=== PATIENT | female | born 1975 | race Caucasian/White ===

== ENCOUNTER 2016-11-13 13:30 | Emergency (ER) | payer MEDICAID ==
--- NOTE | 2016-11-13 14:34 | ER Document Report ---
ED Medical Screen (RME) - General Stated Complaint: KNEE INJURY Notes: injured her knee sunday, tripped and landed on her right knee. difficulty ambulating, able to bear weight. difficulty flexing to 90 degrees but able to, very painful patient has been icing it but no other medications DP's intact, ROM intact below knee, sensation intact I have greeted and performed a rapid initial assessment of this patient. A comprehensive ED assessment and evaluation of the patient, analysis of test results and completion of the medical decision making process will be conducted by additional ED providers. TRAVEL OUTSIDE OF THE [place] IN LAST 30 DAYS: No - Related Data Allergies/Adverse Reactions: codeine Allergy (Intermediate, Verified 11/13/16 14:34) Past Medical History Pulmonary Medical History: Reports: Hx Asthma Musculoskeltal Medical History: Reports Hx Musculoskeletal Trauma Psychiatric Medical History: Reports: Hx Anxiety Traumatic Medical History: Reports: Hx Fractures Past Surgical History: Reports: Hx Hysterectomy, Hx Tubal Ligation - Immunizations Immunizations up to date: Yes Hx Diphtheria, Pertussis, Tetanus Vaccination: Yes Physical Exam - Vital signs Vitals: Temp Pulse Resp BP Pulse Ox 98.0 F 92 14 117/87 H 98 11/13/16 13:55 11/13/16 13:55 11/13/16 13:55 11/13/16 13:55 11/13/16 13:55 Course - Vital Signs Vital signs: Temp Pulse Resp BP Pulse Ox 98.0 F 92 14 117/87 H 98 11/13/16 13:55 11/13/16 13:55 11/13/16 13:55 11/13/16 13:55 11/13/16 13:55
[2016-11-13] MEDS ORDERED: IBUPROFEN 800 MG TABLET PO ONE (14:37)
[2016-11-13] MEDS ORDERED: HYDROCODONE/ACETAMINOPHEN 5-325 MG TABLET PO ONE (16:40)
[2016-11-13] MEDS ORDERED: DIPH/PERTUSS(ACELL)/TETANUS VAC/PF 0.5 ML SYR (>=10YO) IM ONE (16:40)
--- NOTE | 2016-11-13 16:42 | ER Document Report ---
ED Extremity Problem, Lower - General Chief Complaint: Knee Injury Stated Complaint: KNEE INJURY Time seen by provider: 16:36 Mode of Arrival: Ambulatory Information source: Patient Notes: 41-year-old female presents to ED for a pain in her right knee. States she tripped and fell on Sunday had a laceration to her knee that she did did not receive treatment for. States she's been using ice to her knee. TRAVEL OUTSIDE OF THE [place] IN LAST 30 DAYS: No - HPI Patient complains to provider of: Injury, Pain, Swelling Location: Knee - Right Occurred: Other - Sunday Where: Home, Outdoors Onset/Duration: Persistent Quality of pain: Sharp Severity: Moderate Pain Level: 3 Context: Fell Recent injury: Yes Associated symptoms: Other - Painful right knee Exacerbated by: Movement, Walking Relieved by: Nothing, Rest - Related Data Allergies/Adverse Reactions: codeine Allergy (Intermediate, Verified 11/13/16 14:34) Past Medical History - General Information source: Patient - Social History Smoking Status: Current Every Day Smoker Cigarette use (# per day): Yes - have a pack-a-day Chew tobacco use (# tins/day): No Smoking Education Provided: Yes - less than a minute Frequency of alcohol use: Occasional Drug Abuse: None Lives with: Family Family History: Arthritis, Hyperlipidemia, Hypertension, Malignancy, Other - asthma Patient has suicidal ideation: No Patient has homicidal ideation: No - Past Medical History Cardiac Medical History: Reports: None Pulmonary Medical History: Reports: Hx Asthma EENT Medical History: Reports: None Neurological Medical History: Reports: None Endocrine Medical History: Reports: None Renal/ Medical History: Reports: None Malignancy Medical History: Reports: None GI Medical History: Reports: None Musculoskeltal Medical History: Reports Hx Musculoskeletal Trauma - Fractured ankle Skin Medical History: Reports None Psychiatric Medical History: Reports: Hx Anxiety Traumatic Medical History: Reports: Hx Fractures - Ankle Infectious Medical History: Reports: None Past Surgical History: Reports: Hx Hysterectomy, Hx Tubal Ligation - Immunizations Immunizations up to date: Yes Hx Diphtheria, Pertussis, Tetanus Vaccination: Yes Hx Pneumococcal Vaccination: 10/01/00 Review of Systems - Review of Systems Constitutional: No symptoms reported EENT: No symptoms reported Cardiovascular: No symptoms reported Respiratory: No symptoms reported Gastrointestinal: No symptoms reported Genitourinary: No symptoms reported Female Genitourinary: No symptoms reported Musculoskeletal: Other - Right knee pain, pain with range of motion Skin: Other - Laceration from Sunday since Sunday to close it it is starting to heal over with a scab no redness or signs of infection Hematologic/Lymphatic: No symptoms reported Neurological/Psychological: No symptoms reported Physical Exam - Vital signs Vitals: Temp Pulse Resp BP Pulse Ox 98.0 F 92 14 117/87 H 98 11/13/16 13:55 11/13/16 13:55 11/13/16 13:55 11/13/16 13:55 11/13/16 13:55 Interpretation: Normal - General General appearance: Appears well, Alert - HEENT Head: Normocephalic, Atraumatic Eyes: Normal Pupils: PERRL - Respiratory Respiratory status: No respiratory distress Chest status: Nontender Breath sounds: Normal Chest palpation: Normal - Cardiovascular Rhythm: Regular Heart sounds: Normal auscultation Murmur: No - Abdominal Inspection: Normal Distension: No distension Bowel sounds: Normal Tenderness: Nontender Organomegaly: No organomegaly - Back Back: Normal, Nontender - Extremities General upper extremity: Normal inspection, Nontender, Normal color, Normal ROM , Normal temperature General lower extremity: Normal color, Normal ROM, Normal temperature. No: Alex's sign Knee: Tender, Ecchymosis, Laceration - Partially healed scabbed over, Pain with ROM, Patellar tendon intact. No: Abrasion, Deformity, Dislocation, Drawer's test instability, Instability, Joint effusion, Laxity with valgus stress, Laxity with varus stress, Popliteal fossa tender, Tender joint line, Unable to bear weight - Painful ambulation - Neurological Neuro grossly intact: Yes Cognition: Normal Orientation: AAOx4 [place] Coma Scale Eye Opening: Spontaneous [place] Coma Scale Verbal: Oriented [place] Coma Scale Motor: Obeys Commands [place] Coma Scale Total: 15 Speech: Normal Motor strength normal: LUE, RUE, LLE, RLE Sensory: Normal - Psychological Associated symptoms: Normal affect, Normal mood - Skin Skin Temperature: Warm Skin Moisture: Dry Skin Color: Normal Course - Re-evaluation Re-evalutation: 11/13/16 16:51 Discussed x-ray with patient patient treated with ibuprofen [place] and tetanus immunization. - Vital Signs Vital signs: Temp Pulse Resp BP Pulse Ox 98.0 F 92 14 117/87 H 98 11/13/16 13:55 11/13/16 13:55 11/13/16 13:55 11/13/16 13:55 11/13/16 13:55 - Diagnostic Test Radiology reviewed: Image reviewed, Reports reviewed Discharge - Discharge Clinical Impression: Contusion of right knee Qualifiers: Encounter type: initial encounter Qualified Code(s): S80.01XA - Contusion of right knee, initial encounter Laceration of right knee Qualifiers: Encounter type: initial encounter Qualified Code(s): S81.011A - Laceration without foreign body, right knee, initial encounter Condition: Stable Disposition: HOME, SELF-CARE Additional Instructions: NON-SUTURED LACERATION: Your laceration did not require suturing. Some lacerations cannot be sutured because of increased infection risk, while others simply don't need stitches because they are shallow or very short. Your injury should be protected while it heals. Usually complete healing takes 10 to 14 days. Keep the dressing clean and dry, and change it every day. If you notice increasing pain, redness, swelling, drainage, or tender lumps in the armpit or groin above the injury, infection may be present. You should call the doctor at once. CONTUSION: Your injury has resulted in a contusion -- a crushing of the deep tissues. No injury to important structures was detected during the physician's exam. Contusions vary in the amount of pain they cause, and in the length of time required for healing. Typically, the area will become bruised, and will remain painful to touch for two or three weeks. However, most patients are back to working and playing within a few days. After the initial period of rest and cold-packs, your symptoms (together with the doctor's recommendations) will determine how rapidly you can get back to full activity. Usually this means "do what feels okay, but don't do things that hurt." If re-examination was recommended, it's important to follow up as instructed. Call the doctor or return any time if pain increases, if swelling becomes severe, if you develop numbness or weakness in an injured extremity, or if any other alarming symptoms occur. NON-SUTURED LACERATION: Your laceration did not require suturing. Some lacerations cannot be sutured because of increased infection risk, while others simply don't need stitches because they are shallow or very short. Your injury should be protected while it heals. Usually complete healing takes 10 to 14 days. Keep the dressing clean and dry, and change it every day. If you notice increasing pain, redness, swelling, drainage, or tender lumps in the armpit or groin above the injury, infection may be present. You should call the doctor at once. TETANUS IMMUNIZATION GIVEN: You have been given an immunization against tetanus. Please record this in your records. In general, a booster is needed only once every 10 years. The tetanus shot protects against tetanus or "lockjaw," which is a complication of certain wound infections (the tetanus shot cannot protect against the actual infection). The immunization site may become warm and red due to local reaction. If this occurs, apply warm compresses and take aspirin or ibuprofen to reduce inflammation and discomfort. Return for evaluation if the reaction becomes severe. ICE PACKS: Apply ice packs frequently against the painful area. Many different schedules are recommended, such as "20 minutes on, 20 minutes off" or "one hour ice, two hours rest." If you need to work, you may need to go longer between ice treatments. You should plan to have the area ice packed AT LEAST one fourth of the time. The ice should be applied over the wrap, tape, or splint, or over a layer of cloth -- not directly against the skin. Some ice bags have a built-in cloth and can be put directly on the skin. SOAP CLEANSING: Gently wash the wound daily using a mild soap (like Ivory, Phisoderm, Neutrogena). Use warm water, rubbing gently until all debris, ooze, and crusting have been washed from the wound. Allow to dry briefly (about 10 minutes) after cleaning. Repeat this cleansing at least three times a day for the first two days and then once or twice a day. ANTIBIOTIC OINTMENT PROTECTION: Your wounds are such that dressing them is not practical or optional. After cleansing, you should apply a thin coating of antibiotic ointment ( Bacitracin, not Neosporin) to the wounds at least three times daily. This lessens infection risk, and may decrease the amount of scarring. Use a q-tip or dull butter knife, not your finger, to apply this ointment. Any debris or ooze which builds up in the ointment should be gently rubbed off with a sterile gauze pad. Harder crusting may need to be gently scrubbed off with a clean wash cloth with soap and warm water, perhaps applying a warm, wet wash cloth to the wound for ten minutes first. Development of redness, severe itching, or blistering may mean allergy to the ointment. See the doctor. TETANUS IMMUNIZATION GIVEN: You have been given an immunization against tetanus. Please record this in your records. In general, a booster is needed only once every 10 years. The tetanus shot protects against tetanus or "lockjaw," which is a complication of certain wound infections (the tetanus shot cannot protect against the actual infection). The immunization site may become warm and red due to local reaction. If this occurs, apply warm compresses and take aspirin or ibuprofen to reduce inflammation and discomfort. Return for evaluation if the reaction becomes severe. ORAL NARCOTIC MEDICATION: You have been given a prescription for pain control. This medication is a narcotic. It's best taken with food, as nausea can result if taken on an empty stomach. Don't operate machinery or drive within six hours of taking this medication. Do not combine this medicine with alcohol, or with any medication which can cause sedation (such as cold tablets or sleeping pills) unless you get permission from the physician. Narcotics tend to cause constipation. If possible, drink plenty of fluids and eat a diet high in fiber and fruits. FOLLOW-UP CARE: If you have been referred to a physician for follow-up care, call the physician s office for an appointment as you were instructed or within the next two days. If you experience worsening or a significant change in your symptoms, notify the physician immediately or return to the Emergency Department at any time for re-evaluation. Prescriptions: Hydrocodone/Acetaminophen [[place] 5-325 mg Tablet] 1 tab PO Q6HP PRN #14 tablet PRN Reason: Forms: Elevated Blood Pressure, Smoking Cessation Education
[2016-11-13 16:49] VITALS: BP 124/76
== END 2016-11-13 16:58 | disposition home or self-care (01) ==
LOC: ER 13:30
DX: S80.01XA Contusion of right knee, initial encounter (principal); S81.011A Laceration without foreign body, right knee, initial encounter; W19.XXXA Unspecified fall, initial encounter; F17.210 Nicotine dependence, cigarettes, uncomplicated
CPT/HCPCS: 99283; 90471; 73562; 90715; J3490

== ENCOUNTER → 2016-12-06 | Outpatient (CLI) | payer MEDICAID | LOC: WI 12:58 | PROVIDERS: ATTEND Family Medicine | DX: Z12.31 Encounter for screening mammogram for malignant neoplasm of breast (principal) | CPT/HCPCS: 77067; G0202 ==

== ENCOUNTER → 2017-01-22 | Outpatient (CLI) | payer MEDICAID | LOC: OD 11:22 | PROVIDERS: ATTEND Family Medicine | DX: S39.92XA Unspecified injury of lower back, initial encounter (principal) | CPT/HCPCS: 72110 ==

== ENCOUNTER 2018-03-16 10:39 | Emergency (ER) | payer MEDICAID, OTHER ==
[2018-03-16] MEDS ORDERED: ACETAMINOPHEN 325 MG TABLET PO ONE (11:26)
--- NOTE | 2018-03-16 11:28 | ER Document Report ---
ED Fall - General Chief Complaint: Fall Stated Complaint: FALL/HIP AND BACK PAIN Time Seen by Provider: 03/16/18 11:04 Mode of Arrival: Wheelchair Information source: Patient Notes: 42-year-old female presents to ED for complaint of pain to the right hip low back and right elbow after she fell at work yesterday. She is in a wheelchair at this time. She is alert and oriented, pupils equal and react to light, speaking in full sentences, respirations regular and unlabored, patient is able to ambulate with pain. Patient has peripheral pulses present cap refills less than 3. There is bruising to the hip and the elbow. TRAVEL OUTSIDE OF THE [place] IN LAST 30 DAYS: No - HPI Occurred: Yesterday Where: Work Context: Slipped Associated symptoms: None Location of injury/pain: Back, Hip, Other - Elbow Quality of pain: Sharp Severity: Moderate Pain Level: 4 - Related data Allergies/Adverse Reactions: codeine Allergy (Intermediate, Verified 11/13/16 14:34) Past Medical History - General Information source: Patient - Social History Smoking Status: Current Every Day Smoker Cigarette use (# per day): Yes - One half pack per day Chew tobacco use (# tins/day): No Smoking Education Provided: Yes - 4 minutes Frequency of alcohol use: Occasional Drug Abuse: None Family History: Arthritis, Hyperlipidemia, Hypertension, Malignancy, Other - asthma Patient has suicidal ideation: No Patient has homicidal ideation: No Pulmonary Medical History: Reports: Hx Asthma Renal/ Medical History: Denies: Hx Peritoneal Dialysis Musculoskeltal Medical History: Reports Hx Musculoskeletal Trauma - Fractured ankle Psychiatric Medical History: Reports: Hx Anxiety Traumatic Medical History: Reports: Hx Fractures - Ankle Past Surgical History: Reports: Hx Hysterectomy, Hx Tubal Ligation - Immunizations Immunizations up to date: Yes Hx Diphtheria, Pertussis, Tetanus Vaccination: Yes Hx Pneumococcal Vaccination: 10/01/00 Review of Systems - Review of Systems Constitutional: No symptoms reported EENT: No symptoms reported Cardiovascular: No symptoms reported Respiratory: No symptoms reported Gastrointestinal: No symptoms reported Genitourinary: No symptoms reported Female Genitourinary: No symptoms reported Musculoskeletal: Joint pain, Joint swelling, Muscle pain, Muscle stiffness, Other - Right hip right elbow and lower back pain. Skin: No symptoms reported Hematologic/Lymphatic: No symptoms reported Neurological/Psychological: No symptoms reported -: Yes All other systems reviewed and negative Physical Exam - Vital signs Vitals: Temp Pulse Resp BP Pulse Ox 99.0 F 98 20 132/92 H 98 03/16/18 10:46 03/16/18 10:46 03/16/18 10:46 03/16/18 10:46 03/16/18 10:46 Interpretation: Normal - General General appearance: Appears well, Alert - HEENT Head: Normocephalic, Atraumatic Eyes: Normal Pupils: PERRL - Respiratory Respiratory status: No respiratory distress Chest status: Nontender Breath sounds: Normal Chest palpation: Normal - Cardiovascular Rhythm: Regular Heart sounds: Normal auscultation Murmur: No - Abdominal Inspection: Normal Distension: No distension Bowel sounds: Normal Tenderness: Nontender Organomegaly: No organomegaly - Back Back: Normal, Tender. No: Deformity/step-off, CVA tenderness, Vertebra tenderness, Scars, Scoliosis, Wounds - Extremities General upper extremity: Normal inspection, Normal color, Normal temperature. No: Normal ROM General lower extremity: Normal inspection, Normal color, Normal temperature, Normal weight bearing. No: Normal ROM, Alex's sign Elbow: Tender, Limited ROM - Due to pain. No: Abrasion, Deformity, Dislocation , Ecchymosis, Instability, Joint effusion, Laceration, Swollen bursa Forearm: Tender. No: Abrasion, Deformity, Ecchymosis, Instability, Laceration Hip: Tender, Pain with ROM. No: Abrasion, Deformity, Dislocation, Ecchymosis, Instability, Laceration, Unable to bear weight - Pain with ambulation Thigh: Normal, Nontender Knee: Normal, Nontender Calf: Normal, Nontender Ankle: Normal, Nontender Foot: Normal, Nontender - Neurological Neuro grossly intact: Yes Cognition: Normal Orientation: AAOx4 Juan Carlos Coma Scale Eye Opening: Spontaneous Juan Carlos Coma Scale Verbal: Oriented Juan Carlos Coma Scale Motor: Obeys Commands Margie Coma Scale Total: 15 Speech: Normal Motor strength normal: LUE, RUE, LLE, RLE Sensory: Normal - Psychological Associated symptoms: Normal affect, Normal mood - Skin Skin Temperature: Warm Skin Moisture: Dry Skin Color: Normal Course - Re-evaluation Re-evalutation: 03/16/18 21:11 X-rays were discussed with patient before she was discharged. Written reports of x-rays given to patient to follow-up with her primary doctor and orthopedics. Patient stated that her elbow did not hurt as much is her hip and would prefer crutches and states she would be able to walk with crutches rather than a sling for her elbow. There is no acute injuries to the elbow hip or back. Patient was given instructions on Tylenol Motrin ice packs warm packs elevation ice for her injuries. After performing a Medical Screening Examination, I estimate there is LOW risk for EXPANDING OR RUPTURED ABDOMINAL AORTIC ANEURYSM, CAUDA EQUINA SYNDROME, EPIDURAL MASS LESION, or HERNIATED DISK CAUSING SEVERE SPINAL STENOSIS, thus I consider the discharge disposition reasonable. I have reevaluated this patient multiple times and no significant life threatening changes are noted. The patient and I have discussed the diagnosis and risks, and we agree with discharging home and close follow-up. We also discussed returning to the Emergency Department immediately if new or worsening symptoms occur with the understanding that symptoms and presentations can change. We have discussed the symptoms which are most concerning (e.g., saddle anesthesia, urinary or bowel incontinence or retention, changing or worsening pain) that necessitate immediate return. - Vital Signs Vital signs: Temp Pulse Resp BP Pulse Ox 98.2 F 80 16 124/88 H 100 03/16/18 13:15 03/16/18 13:15 03/16/18 13:15 03/16/18 13:15 03/16/18 13:15 - Diagnostic Test Radiology reviewed: Image reviewed, Reports reviewed Procedures - Immobilization Right Hip Time completed: 13:09 Immobilizer type: Crutches Performed by: PCT Post-Proc Neuro Vasc Exam: Normal Alignment checked and good: Yes Discharge - Discharge Clinical Impression: Fall Qualifiers: Encounter type: initial encounter Qualified Code(s): W19.XXXA - Unspecified fall, initial encounter Contusion of right hip and thigh Qualifiers: Encounter type: initial encounter Qualified Code(s): S70.01XA - Contusion of right hip, initial encounter Contusion of right elbow Qualifiers: Encounter type: initial encounter Qualified Code(s): S50.01XA - Contusion of right elbow, initial encounter Chronic low back pain Qualifiers: Back pain laterality: unspecified Sciatica presence: with sciatica Sciatica laterality: sciatica of right side Qualified Code(s): M54.41 - Lumbago with sciatica, right side Disposition: HOME, SELF-CARE Additional Instructions: CONTUSION: Your injury has resulted in a contusion -- a crushing of the deep tissues. No injury to important structures was detected during the physician's exam. Contusions vary in the amount of pain they cause, and in the length of time required for healing. Typically, the area will become bruised, and will remain painful to touch for two or three weeks. However, most patients are back to working and playing within a few days. After the initial period of rest and cold-packs, your symptoms (together with the doctor's recommendations) will determine how rapidly you can get back to full activity. Usually this means "do what feels okay, but don't do things that hurt." If re-examination was recommended, it's important to follow up as instructed. Call the doctor or return any time if pain increases, if swelling becomes severe, if you develop numbness or weakness in an injured extremity, or if any other alarming symptoms occur. Chronic Back Pain Chronic back pain (pain persisting longer than three months) is a common problem. A medical evaluation can look for herniated disc, arthritis, osteoporosis, tumors, and infections. But at least half the time, there's no obvious treatable cause. Anxiety and depression tend to worsen back pain. Ibuprofen or other anti-inflammatory medicine can help. A heating pad, used for 15-20 minutes at a time, can ease pain. For this type of back pain, narcotic medicines should be avoided. Muscle relaxers are rarely helpful unless you're having spasms. Activity is important. Find an aerobic exercise program that your back can tolerate. Too much rest makes back pain worse. Specific back exercises are usually prescribed to strengthen the back and abdominal muscles. Often, a physical therapist can help. Avoid heavy lifting, working while bent over, or standing with both knees straight. Most back pain patients do better with a firm mattress. If new symptoms of a "herniated disc" (radiation of pain, numbness, or tingling down the back of the leg or weakness in the leg) occur, you should be re-examined. USE OF TYLENOL (ACETAMINOPHEN): Acetaminophen may be taken for pain relief or fever control. It's much safer than aspirin, offering a wider range of "safe" dosages. It is safe during . Some brand names are Tylenol, Panadol, Datril, Anacin 3, Tempra, and Liquiprin. Acetaminophen can be repeated every four hours. The following are maximum recommended dosages: WEIGHT Dose Drops Elixir Chewable( 80mg) (LBS.) drprs=droppers tsp=teaspoon 6 40 mg 0.4 ml (1/2) 6-11 80 mg 0.8 ml (full) tsp 1 tab 12-16 120 mg 1 1/2 drprs 3/4 tsp 1 1/2 tabs 17-23 160 mg 2 drprs 1 tsp 2 tabs 24-30 240 mg 3 drprs 1 1/2 tsp 3 tabs 30-35 320 mg 2 tsp 4 tabs 36-41 360 mg 2 1/4 tsp 4 1/2 tabs 42-47 400 mg 2 1/2 tsp 5 tabs 48-53 480 mg 3 tsp 6 tabs 54-59 520 mg 3 1/4 tsp 6 1/2 tabs 60-64 560 mg 3 1/2 tsp 7 tabs 65-70 600 mg 3 3/4 tsp 7 1/2 tabs 71-76 640 mg 4 tsp 8 tabs 77-82 720 mg 4 1/2 tsp 9 tabs 83-88 800 mg 5 tsp 10 tabs >89 pounds or adults 650 mg to 900 mg Acetaminophen can be repeated every four hours. Maximum dose not to exceed 4000 mg a day. These maximum recommended dosages are slightly higher than the dosages written on the product container, but these dosages are very safe and below the toxic dosage for acetaminophen. ICE PACKS: Apply ice packs frequently against the painful area. Many different schedules are recommended, such as "20 minutes on, 20 minutes off" or "one hour ice, two hours rest." If you need to work, you may need to go longer between ice treatments. You should plan to have the area ice packed AT LEAST one fourth of the time. The ice should be applied over the wrap, tape, or splint, or over a layer of cloth -- not directly against the skin. Some ice bags have a built-in cloth and can be put directly on the skin. WARM PACKS: After approximately two days, apply gentle heat (such as a heating pad or hot water bottle) for about 20 to 30 minutes about every two hours -- at least four times daily. Warmth and elevation will help you make a more rapid recovery , and will ease the pain considerably. Do not use HOT heat, and never apply heat for longer than 30 minutes. The continuous heat can invisibly damage skin and muscles -- even when no burn is seen on the surface. Damaged muscles can make you MORE sore. USE OF CRUTCHES: The doctor has recommended that you not bear weight at this time. You will need to use crutches. Adjust the crutches so the tops come to about two inches under the armpit while you are standing upright. Use your hands -- not your armpits -- to support your weight. To get into a chair, support yourself with one crutch on the injured side. Hold the chair with the other hand, then lower yourself while putting all your weight on the good leg. Going up stairs is `good leg up, step up, then bring up crutches and bad leg.' Down stairs is `bad leg and crutches down, then bring good leg down.' If you develop numbness or swelling in an arm or hand, you are using the crutches incorrectly. Return if you are having any problems with the crutches. ICE & ELEVATION: Apply ice packs frequently against the painful area. Many different schedules are recommended, such as "20 minutes on, 20 minutes off" or "one hour ice, two hours rest." If you need to work, you may need to go longer between ice treatments. You should plan to have the area ice packed AT LEAST one- fourth of the time. The ice should be applied over the wrap, tape, or splint, or over a layer of cloth -- not directly against the skin. Some ice bags have a built-in cloth and can be put directly on the skin. Your injured part should be elevated as much as possible over the next 48 hours. Try to keep the injury above the level of the heart. Avoid use of the injured area. Elevation and rest will decrease the swelling. USE OF [id number] IBUPROFEN: Ibuprofen (Advil, Nuprin, Medipren, Motrin IB) is a medication for fever and pain control. In addition, it has anti- inflammatory effects which may be beneficial, especially in the treatment of injuries. It's best to take ibuprofen with food. Persons with ulcer disease or allergy to aspirin should notify their physician of this before taking ibuprofen. Ibuprofen can be given every four to six hours, for a total of four doses daily. Age Pain or fever dose Antiinflammatory dose 6-8 yr 200 mg (1 tab) 200 mg (1 tab) 9-11 yr 200 mg (1 tab) 200-400 mg (1-2 tab) 11-14 yr 200-400 mg (1-2 tab) 400 mg (2 tab) 15-adult 400 mg (2 tab) 600 mg (3 tab) FOLLOW-UP CARE: If you have been referred to a physician for follow-up care, call the physician s office for an appointment as you were instructed or within the next two days. If you experience worsening or a significant change in your symptoms, notify the physician immediately or return to the Emergency Department at any time for re-evaluation. Forms: Elevated Blood Pressure, Smoking Cessation Education, Return to Work Referrals: BOSSMAN DOAN MD [ACTIVE STAFF] - Follow up as needed LYRIC DAVENPORT MD [ACTIVE STAFF] - Follow up as needed
--- NOTE | 2018-03-16 12:22 | RADIOLOGY REPORT (SQ) ---
EXAM DESCRIPTION: ELBOW RIGHT OVER 2 VIEWS COMPLETED DATE/TIME: 03/16/2018 12:03 pm REASON FOR STUDY: fall pain fall injury pain COMPARISON: None. NUMBER OF VIEWS: Four views. TECHNIQUE: AP, lateral, and both oblique radiographic images acquired of the right elbow. LIMITATIONS: Nonstandard radiographic positioning on lateral view. FINDINGS: MINERALIZATION: Normal. BONES: No acute fracture or dislocation. No worrisome bone lesions. JOINT: No effusion. SOFT TISSUES: No soft tissue swelling. No foreign body. OTHER: No other significant finding. IMPRESSION: NEGATIVE STUDY OF THE RIGHT ELBOW. NO RADIOGRAPHIC EVIDENCE OF ACUTE INJURY. TECHNICAL DOCUMENTATION: JOB ID: [id number] [employer]- All Rights Reserved Reading location - IP/workstation name: [email or web address]
--- NOTE | 2018-03-16 12:23 | RADIOLOGY REPORT (SQ) ---
EXAM DESCRIPTION: HIP RIGHT AP/LATERAL COMPLETED DATE/TIME: 03/16/2018 12:03 pm REASON FOR STUDY: fall pain COMPARISON: None. NUMBER OF VIEWS: Two views. TECHNIQUE: AP pelvis and additional frog-leg view of the right hip. LIMITATIONS: None. FINDINGS: MINERALIZATION: Normal. RIGHT HIP: No fracture or dislocation. No significant joint space narrowing. Mild calcification kaya ng the acetabular labrum. LEFT HIP: No fracture or dislocation. No significant joint space narrowing PUBIS AND ISCHIUM: No fracture. PELVIS: No fracture. SACRUM: No fracture or dislocation. No worrisome bone lesions. LOWER LUMBAR SPINE: Lower lumbar facet arthropathy at L5-S1 SOFT TISSUES: No findings. OTHER: No other significant finding. IMPRESSION: No acute fracture or malalignment. Minimal right hip joint space narrowing. Minimal ca lcifications/ossification along the acetabular labrum TECHNICAL DOCUMENTATION: JOB ID: [id number] [employer]- All Rights Reserved Reading location - IP/workstation name: [email or web address]
--- NOTE | 2018-03-16 12:25 | RADIOLOGY REPORT (SQ) ---
EXAM DESCRIPTION: L SPINE WHOLE COMPLETED DATE/TIME: 03/16/2018 12:03 pm REASON FOR STUDY: fall pain COMPARISON: Lumbar spine five views 03/20/2013 NUMBER OF VIEWS: Five views including obliques. TECHNIQUE: AP, lateral, oblique, and sacral radiographic images acquired of the lumbar spine. LIMITATIONS: None. FINDINGS: MINERALIZATION: Normal. SEGMENTATION: Normal. No transitional anatomy. ALIGNMENT: Normal. VERTEBRAE: Maintained height. No fracture or worrisome bone lesion. DISCS: Preserved height. No significant osteophytes or end plate irregularity. POSTERIOR ELEMENTS: Pedicles and facets are intact. No pars defect or posterior arch defects. Bilat eral facet arthropathy at L4-5 and L5-S1. HARDWARE: None in the spine. PARASPINAL SOFT TISSUES: Normal. IMPRESSION: Lower lumbar facet arthropathy. No acute fracture or malalignment TECHNICAL DOCUMENTATION: JOB ID: [id number]- All Rights Reserved Reading location - IP/workstation name: [email or web address]
[2018-03-16 13:16] VITALS: BP 124/88
== END 2018-03-16 13:15 | disposition home or self-care (01) ==
LOC: ER 10:39
DX: S70.01XA Contusion of right hip, initial encounter (principal); S70.11XA Contusion of right thigh, initial encounter; S50.01XA Contusion of right elbow, initial encounter; M25.551 Pain in right hip; M25.522 Pain in left elbow; W01.0XXA Fall on same level from slipping, tripping and stumbling without subsequent striking against object, initial encounter; Y99.0 Civilian activity done for income or pay; M54.41 Lumbago with sciatica, right side; G89.29 Other chronic pain; F17.210 Nicotine dependence, cigarettes, uncomplicated; Z71.6 Tobacco abuse counseling; J45.909 Unspecified asthma, uncomplicated; Z88.5 Allergy status to narcotic agent
CPT/HCPCS: 72110; 99283; 99406

== ENCOUNTER 2018-09-02 23:49 | Emergency (ER) | payer MEDICAID ==
[2018-09-03 00:30] VITALS: BP 120/96
--- NOTE | 2018-09-03 00:53 | ER Document Report ---
HPI - HPI Patient complains to provider of: left rib injury Time Seen by Provider: 09/03/18 00:28 Pain Level: 5 Context: Patient is a 43-year-old female that comes to the emergency department for chief complaint of left rib pain. She states she was walking down a dark hallway in her house, tripped, and hit her left lower ribs in the front on the side of a dryer. She states since that time she has had pain in the area. This was 4 days ago. She denies passing out, head injury, vomiting, difficulty breathing, or any other injuries. She denies a blood thinner. - RESPIRATORY Respiratory: REPORTS: Trouble Breathing - left lower rib pain - REPRODUCTIVE Reproductive: DENIES: : Past Medical History - General Information source: Patient - Social History Smoking Status: Current Every Day Smoker Chew tobacco use (# tins/day): No Frequency of alcohol use: Occasional Drug Abuse: None Lives with: Family Family History: Arthritis, Hyperlipidemia, Hypertension, Malignancy, Other - asthma Patient has suicidal ideation: No Patient has homicidal ideation: No Pulmonary Medical History: Reports: Hx Asthma Renal/ Medical History: Denies: Hx Peritoneal Dialysis Musculoskeletal Medical History: Reports Hx Musculoskeletal Trauma - Fractured ankle Psychiatric Medical History: Reports: Hx Anxiety Traumatic Medical History: Reports: Hx Fractures - Ankle Past Surgical History: Reports: Hx Hysterectomy, Hx Tubal Ligation - Immunizations Immunizations up to date: Yes Hx Diphtheria, Pertussis, Tetanus Vaccination: Yes Hx Pneumococcal Vaccination: 10/01/00 Vertical Provider Document - CONSTITUTIONAL General Appearance: Mild Distress - Patient appears to have difficulty getting comfortable, intermittently holding her left lower rib area - INFECTION CONTROL TRAVEL OUTSIDE OF THE [place] IN LAST 30 DAYS: No - HEENT HEENT: Atraumatic, Normal ENT Exam, Normocephalic - NECK Neck: Normal Inspection - RESPIRATORY Respiratory: Breath Sounds Normal, No Respiratory Distress. negative: Chest Non -Tender - Tender over the left anterior to lateral lower ribs, no bruising or swelling, no crepitus. Remaining chest unremarkable. - CARDIOVASCULAR Cardiovascular: Regular Rate, Regular Rhythm - GI/ABDOMEN Gastrointestinal: Abdomen Soft, Abdomen Non-Tender - BACK Back: Normal Inspection - MUSCULOSKELETAL/EXTREMETIES Musculoskeletal/Extremeties: MAEW, FROM, Non-Tender - NEURO Level of Consciousness: Awake, Alert, Appropriate Motor/Sensory: No Motor Deficit, No Sensory Deficit - DERM Integumentary: Warm, Dry, No Rash Course - Re-evaluation Re-evalutation: Initial pulse was recorded incorrectly, reevaluated and was accurate the second time. This was confirmed on auscultation. Clear lungs, patient in obvious discomfort but not in severe distress, no hypoxia, no evidence of trauma other than her full 4 days ago and pain over the left lower rib area. Chest x-ray shows left sixth rib fracture, no pneumothorax or other concerning findings. Provided with incentive spirometer, discussed treatment, follow-up, and return precautions in detail. Patient states understanding and agreement. - Vital Signs Vital signs: Temp Pulse Resp BP Pulse Ox 97.9 F 199 H 18 120/96 H 98 09/03/18 00:27 09/03/18 00:27 09/03/18 00:27 09/03/18 00:27 09/03/18 00:27 Discharge - Discharge Clinical Impression: Left rib fracture Qualifiers: Encounter type: initial encounter Rib fracture type: single rib Fracture type: closed Qualified Code(s): S22.32XA - Fracture of one rib, left side, initial encounter for closed fracture Fall Qualifiers: Encounter type: initial encounter Qualified Code(s): W19.XXXA - Unspecified fall, initial encounter Condition: Stable Disposition: HOME, SELF-CARE Instructions: Oral Narcotic Medication ([facility]) Additional Instructions: Your imaging shows a fracture of the left sixth rib. This will slowly heal with time. Use the incentive spirometer several times a day to avoid developing pneumonia. Take the pain medication as needed, I recommend that you take Tylenol or ibuprofen during the day and only take this at night to help you sleep. Follow-up with primary care. Return if you worsen including difficulty breathing, fever of 100.4 or greater, or any other concerning or worsening symptoms. Prescriptions: Morphine Sulfate [Morphine Ir 15 Mg Tablet] 15 mg PO TID PRN #12 tablet PRN Reason: Referrals: MARGARITA JOSEPH DO [Primary Care Provider] - Follow up as needed
--- NOTE | 2018-09-03 01:40 | RADIOLOGY REPORT (SQ) ---
CLINICAL HISTORY: Fell 3 days ago, has L sided rib pain COMPARISON: None. TECHNIQUE: XR RIBS UNILATERAL WITH CHEST 09/03/2018 12:00 AM FACILITIES ASSISTANT FINDINGS: Cardiac silhouette is normal in size. Lungs are clear without consolidation, atelectasis, mass or edema. There is no pleural effusion. There is no pneumothorax. There is a minimally displaced fracture of the lateral aspect of the left sixth rib. IMPRESSION: Left sixth rib fracture.
[2018-09-03] MEDS ORDERED: HYDROCODONE/ACETAMINOPHEN 5-325 MG (6 TAB/ER DISP) PO PRN (01:47)
== END 2018-09-03 02:24 | disposition home or self-care (01) ==
LOC: ER 23:49
DX: S22.32XA Fracture of one rib, left side, initial encounter for closed fracture (principal); R07.81 Pleurodynia; W18.40XA Slipping, tripping and stumbling without falling, unspecified, initial encounter; Y92.008 Other place in unspecified non-institutional (private) residence as the place of occurrence of the external cause; F17.200 Nicotine dependence, unspecified, uncomplicated; J45.909 Unspecified asthma, uncomplicated
CPT/HCPCS: 99283

== ENCOUNTER 2019-01-23 22:20 | Observation (INO) | payer MEDICAID ==
--- NOTE | 2019-01-23 22:50 | ER Document Report ---
ED General - General Chief Complaint: Chest Pain Stated Complaint: CHEST PAIN Time Seen by Provider: 01/23/19 22:46 Primary Care Provider: MARGARITA JOSEPH DO [Primary Care Provider] - Follow up as needed Notes: 3-year-old female presents with left arm and shoulder pain, along with chest pain, followed by immediate weakness and numbness and tingling of the left side of her body, left and arm. She is unsure when this began. She was last seen normal by her daughter at 4:30 PM, and initially we thought this started 1 hour ago but she is having trouble remembering. Her daughter says that when she talked to her mom on the phone at 4:30 PM she was having trouble getting her words out. Patient does not remember this. Is never had this before, she smokes and has high blood pressure but never had a stroke before. History of anxiety but never had symptoms like this during an anxiety attack. That was stopped at discharge she has chronic back pain does not have lower extremely weakness at baseline. She is repeatedly unable to tell me exactly when the symptoms started, other than the occurred after she delivered mParticleo Vasquez to her daughter at 4:30 PM. I am evaluating her at 10:30 PM. TRAVEL OUTSIDE OF THE [place] IN LAST 30 DAYS: No - Related Data Allergies/Adverse Reactions: codeine Allergy (Intermediate, Verified 11/13/16 14:34) Past Medical History - Social History Smoking Status: Current Every Day Smoker Smoking Education Provided: Yes - The patient ED visit today was directly related to their abuse of tobacco. Family History: Arthritis, Hyperlipidemia, Hypertension, Malignancy, Other - asthma Pulmonary Medical History: Reports: Hx Asthma Renal/ Medical History: Denies: Hx Peritoneal Dialysis Musculoskeletal Medical History: Reports Hx Musculoskeletal Trauma - Fractured ankle Psychiatric Medical History: Reports: Hx Anxiety Traumatic Medical History: Reports: Hx Fractures - Ankle Past Surgical History: Reports: Hx Hysterectomy, Hx Tubal Ligation - Immunizations Immunizations up to date: Yes Hx Diphtheria, Pertussis, Tetanus Vaccination: Yes Hx Pneumococcal Vaccination: 10/01/00 Review of Systems - Review of Systems Notes: REVIEW OF SYSTEMS GEN: Denies fever, chills, weight loss ENT: Denies sore throat, nasal discharge, ear pain EYES: Denies blurry vision, eye pain, discharge CV: Denies chest pain, palpitations, edema RESP: Denies cough, shortness of breath, wheezing GI: Denies abdominal pain, nausea, vomiting, diarrhea MSK: Denies joint pain/swelling, edema, SKIN: Denies rash, skin lesions LYMPH: Denies swollen glands/lymph nodes NEURO: Sided weakness and numbness, resolved speech difficulties PSYCH: Denies depression, suicidal or homicidal ideation PHYSICAL EXAMINATION General: No acute distress, well-nourished Head: Atraumatic, normocephalic ENT: Mouth normal, oropharynx moist, no exudates or tonsillar enlargement Eyes: Conjunctiva normal, pupils equal, lids normal Neck: No JVD, supple, no guarding CVS: Normal rate, regular rhythm, no murmurs Resp: No resp distress, equal and normal breath sounds bilaterally GI: Nondistended, soft, no tenderness to palpation, no rebound or guarding Ext: No deformities, no edema, normal range of motion in upper and lower ext Back: No CVA or midline TTP Skin: No rash, warm Lymphatic: No lymphadeopathy noted Neuro: Awake, alert. Face symmetric. GCS 15. Sensation to pinprick from the left shoulder to fingers, and the left side to the left toes. There is pronator drift and arm drift on the left arm with decreased ad operations associate strength, there is decreased hip flexion/leg raise on the left, 3-5. Further recommendation for NIH stroke score. Physical Exam - Vital signs Vitals: Pulse Ox 99 01/23/19 22:46 Course - Re-evaluation Re-evalutation: 01/23/19 23:57 Patient presents with left-sided pain and weakness reproducible on exam. Her NIH stroke scale is 4. Her last known well time is 430 and she is already out of the window for TPA intravenously but I will get a CT CTA activate a code stroke, and consider large vessel occlusion. Patient's labs and EKG are normal especially in the setting of chest pain. She denies alcohol use and substance use. I reassessed her after her results at 11:55 PM, she is having some mild visual hallucinations picking at insects in the air that are not there. Her daughter says this is not normal for her. She also has mild slurred speech now. We will give her aspirin, and consider antipsychotics, will order urine drug screen. No indication for transfer for acute stroke, will need MRI as inpatient and full stroke/altered mental status work-up. No fever no nuchal rigidity doubt meningitis. Discussed with Dr. Aponte for admission to the IMCU. - Vital Signs Vital signs: Temp Pulse Resp BP Pulse Ox 96 15 139/87 H 98 01/23/19 23:01 01/23/19 23:31 01/23/19 23:31 01/23/19 23:31 - Laboratory Result Diagrams: 01/23/19 22:45 01/23/19 22:45 Laboratory results interpreted by me: 01/23/19 01/23/19 22:45 22:45 RBC 3.68 L MCV 105 H MCH 36.3 H RDW 18.1 H BUN 5 L AST 46 H - Diagnostic Test Radiology reviewed: Image reviewed, Reports reviewed - EKG Interpretation by Me EKG shows normal: Sinus rhythm Rate: Normal Rhythm: NSR When compared to previous EKG there are: Previous EKG unavailable Critical Care Note - Critical Care Note Total time excluding time spent on procedures (mins): 35 Comments: The above patient is critically ill. Not including procedures, but including direct re-evaluations, speaking with patient and/or consultants, interpreting results, and documenting, I spent the total amount of minute listed listed above on critical care time Discharge - Discharge Clinical Impression: Left-sided weakness Disposition: ADMITTED OBSERVATION Admitting Provider: Fadi (Hospitalist) Unit Admitted: IMCU Referrals: MARGARITA JOSEPH DO [Primary Care Provider] - Follow up as needed
[2019-01-23 23:07] LABS: INTERNATIONAL RATION (INR) 0.95; PARTIAL THROMBOPLASTIN TIME 29.4 SEC (23.5-35.8); PROTHROMBIN TIME 13.2 SEC (11.4-15.4)
[2019-01-23 23:08] LABS: ABSOLUTE BASOPHILS # (AUTO) 0.1 10^3/uL (0.0-0.2); ABSOLUTE EOSINOPHILS # (AUTO) 0.2 10^3/uL (0.0-0.6); ABSOLUTE LYMPHOCYTES (AUTO) 2.4 10^3/uL (0.5-4.7); ABSOLUTE MONOCYTES (AUTO) 0.6 10^3/uL (0.1-1.4); ABSOLUTE NEUT (AUTO) 4.5 10^3/uL (1.7-8.2); BASOPHILS % (AUTO) 0.9 % (0-2); EOSINOPHILS % (AUTO) 2.8 % (0-6); HEMATOCRIT 38.7 % (36.0-47.0); HEMOGLOBIN 13.4 g/dL (12.0-15.5); LYMPHOCYTES % (AUTO) 30.8 % (13-45); MEAN CORPUSCULAR HEMOGLOBIN 36.3 pg (27.0-33.4); MEAN CORPUSCULAR HGB CONC 34.5 g/dL (32.0-36.0); MEAN CORPUSCULAR VOLUME 105 fl (80-97); MONOCYTES % (AUTO) 7.5 % (3-13); PLATELET COUNT 200 10^3/uL (150-450); RED BLOOD COUNT 3.68 10^6/uL (3.72-5.28); RED CELL DISTRIBUTION WIDTH 18.1 % (11.5-14.0); TOTAL CELLS COUNTED % (AUTO) 100 %; WHITE BLOOD COUNT 7.8 10^3/uL (4.0-10.5)
[2019-01-23 23:21] LABS: ALANINE AMINOTRANSFERASE 27 U/L (9-52); ALKALINE PHOSPHATASE 87 U/L (38-126); ANION GAP 12 (5-19); ASPARTATE AMINO TRANSFERASE 46 U/L (14-36); BILIRUBIN,DIRECT 0.2 mg/dL (0.0-0.4); BILIRUBIN,TOTAL 0.4 mg/dL (0.2-1.3); BLOOD UREA NITROGEN 5 mg/dL (7-20); CARBON DIOXIDE 22 mmol/L (22-30); CHLORIDE 105 mmol/L (98-107); CREATINE KINASE 78 U/L (30-135); GLUCOSE 88 mg/dL (75-110); POTASSIUM 3.7 mmol/L (3.6-5.0); SODIUM 139.4 mmol/L (137-145); TOTAL PROTEIN 7.4 g/dL (6.3-8.2)
--- NOTE | 2019-01-23 23:29 | RADIOLOGY REPORT (SQ) ---
EXAM DESCRIPTION: CT HEAD WITHOUT IV CONTRAST COMPLETED DATE/TME: 01/23/2019 22:46 CLINICAL HISTORY: 43 years, Female, L weakness COMPARISON: None. TECHNIQUE: Noncontrast CT of the head was performed. Coronal and sagittal reformations were created. Images stored on PACS. All CT scanners at this facility use dose modulation, iterative reconstruction, and/or weight based dosing when appropriate to reduce radiation dose to as low as reasonably achievable (ALARA). [facility]: Dose Right [facility]: CareDose [facility]: Dose Right [facility]: Teradose 4D [facility]: [employer] LIMITATIONS: None. FINDINGS: Brain parenchyma is normal in attenuation. No acute intracranial hemorrhage, mass effect, or extra-axial fluid is seen. The ventricles, sulci, and basilar cisterns are normal in size and configuration. Globes and orbits are normal. Moderate opacity is noted about the left maxillary antrum with associated mucosal thickening. Additional mild mucosal thickening is noted about the right maxillary antra. Remaining paranasal sinuses and mastoid air cells are clear.. There are no depressed skull fractures. IMPRESSION: No acute intracranial abnormality. Moderate left and mild right maxillary sinus disease. TECHNICAL DOCUMENTATION: Quality ID # 436: Final reports with documentation of one or more dose reduction techniques (e.g., Automated exposure control, adjustment of the mA and/or kV according to patient size, use of iterative reconstruction technique) copyright 2011 [employer]- All Rights Reserved
[2019-01-23 23:33] LABS: CREATINE KINASE MB 0.89 ng/mL (<4.55)
[2019-01-23 23:34] LABS: TROPONIN I < 0.012 ng/mL
--- NOTE | 2019-01-23 23:35 | RADIOLOGY REPORT (SQ) ---
EXAM DESCRIPTION: XR CHEST 1 VIEW COMPLETED DATE/TME: 01/23/2019 00:00 CLINICAL HISTORY: 43 years Female, stroke alert COMPARISON: None. NUMBER OF VIEWS/TECHNIQUE: 1/AP FINDINGS: Adequate lung volume, clear parenchyma, normal cardiac silhouette, and intact bony thorax. IMPRESSION: No acute cardiopulmonary findings.
--- NOTE | 2019-01-23 23:48 | RADIOLOGY REPORT (SQ) ---
CT ANGIOGRAPHY OF THE HEAD AND NECK HISTORY: CVA. COMPARISON: None. TECHNIQUE: CT angiogram of the head and neck with contrast. 3D reformatted reconstructions were performed on an independent workstation. This exam was performed according to our departmental dose-optimization program, which includes automated exposure control, adjustment of the mA and/or kV according to patient size and/or use of iterative reconstruction technique. FINDINGS: NECK: There is patent flow opacification of the aortic arch origin right brachiocephalic, left common carotid, and left subclavian arteries. The bilateral vertebral artery origins are normal. There is patent flow opacification through the bilateral common carotid arteries, carotid bifurcations, cervical internal/external carotid, and vertebral arteries. BRAIN: There is patent flow opacification through anterior circulation (bilateral petrous/cavernous/supraclinoid internal carotid arteries, anterior and middle cerebral arteries), posterior circulation (vertebral-basilar, posterior-inferior cerebellar, anterior-inferior cerebellar, superior cerebellar, and posterior cerebral arteries), and distal intracranial vasculature. There is patent flow opacification through a complete [id number] with a patent anterior communicating artery and bilateral posterior communicating arteries. IMPRESSION: No evidence of occlusive thrombosis in the major vasculature of the head and neck.
[2019-01-24] MEDS ORDERED: MAGNESIUM HYDROXIDE SUSP 30 ML UDCUP PO PRN (00:02)
[2019-01-24] MEDS ORDERED: ACETAMINOPHEN 325 MG TABLET PO PRN (00:02)
[2019-01-24] MEDS ORDERED: DOCUSATE SODIUM 100 MG CAPSULE PO PRN (00:02)
[2019-01-24] MEDS ORDERED: ATORVASTATIN CALCIUM 80 MG TABLET PO ONE (00:15)
[2019-01-24 00:44] LABS: URINE AMPHETAMINES SCREEN NEGATIVE; URINE BARBITURATES SCREEN NEGATIVE; URINE BENZODIAZEPINES SCREEN NEGATIVE; URINE COCAINE SCREEN NEGATIVE; URINE MARIJUANA (THC) SCREEN NEGATIVE; URINE METHADONE SCREEN NEGATIVE; URINE PHENCYCLIDINE SCREEN NEGATIVE
[2019-01-24] MEDS: THIAMINE HCL 100 MG TABLET PO SCH ×2 (02:45→10:59)
[2019-01-24] MEDS: FOLIC ACID 1 MG TABLET PO SCH ×2 (02:46→11:00)
[2019-01-24 05:25] LABS: CHOLESTEROL 160.36 mg/dL (0-200); CREATINE KINASE 66 U/L (30-135); TRIGLYCERIDES 175 mg/dL (<150)
[2019-01-24 05:37] LABS: CREATINE KINASE MB 0.59 ng/mL (<4.55); DIRECT LDL 72 mg/dL (<100)
[2019-01-24 05:45] LABS: TROPONIN I < 0.012 ng/mL
--- NOTE | 2019-01-24 05:50 | PDOC H&P ---
History of Present Illness Admission Date/PCP: 01/24/19 00:19 MARGARITA JOSEPH DO Patient complains of: Chest pain and left-sided weakness History of Present Illness: ZARIA CRAIN is a 43 year old female with a past medical history of hypertension, tobacco Dependence and alcohol dependence. She presents 4 hours after the onset of left shoulder pain followed by left-sided numbness and chest pain prompting evaluation in the emergency room where she is found with delirium, alcohol intoxication and a macrocytic anemia in addition to the above complaints. She receives aspirin and referred to the hospitalist for TIA after an unremarkable CT head. Patient is delirious and confused, threatens AMA and is subsequently IVC by emergency room provider. Patient denies recent change in medications, recreational drugs or alcohol use. She denies previous history of TIA. Past Medical History Pulmonary Medical History: Reports: Chronic Obstructive Pulmonary Disease (COPD) Psychiatric Medical History: Reports: Alcohol Dependency, Tobacco Dependency Past Surgical History Past Surgical History: Reports: Hysterectomy, Tubal Ligation Social History Information Source: Patient Lives with: Family Smoking Status: Current Every Day Smoker Frequency of Alcohol Use: Heavy Drugs: None - Advance Directive Resuscitation Status: Full Code Family History Family History: Arthritis, CVA, Hyperlipidemia, Hypertension, Malignancy, Other - asthma Parental Family History Reviewed: Yes Children Family History Reviewed: Yes Sibling(s) Family History Reviewed.: Yes Medication/Allergy Home Medications: Ibuprofen 800 mg PO Q8HP PRN #30 tablet 02/28/14 Nitrofurantoin/Nitrofuran Mac [Macrobid 100 mg Capsule] 100 mg PO BID #20 capsule 02/28/14 Phenazopyridine HCl [Pyridium 100 Mg Tablet] 100 mg PO TIDP PRN #7 tablet 02/28/14 Zolpidem Tartrate [Ambien 10 mg Tablet] 1 tab PO HSP PRN 02/28/14 Oxycodone HCl/Acetaminophen [Percocet 5-325 mg Tablet] 1 - 2 tab PO Q4HP PRN #15 tablet 09/11/14 Naproxen 500 mg PO BID #20 tablet 11/14/14 Tramadol HCl [Ultram] 50 mg PO Q4 PRN #20 tablet 11/14/14 Oxycodone HCl/Acetaminophen [Percocet 5-325 mg Tablet] 1 - 2 tab PO Q4H PRN #15 tablet 01/13/15 Hydrocodone/Acetaminophen [Vicodin 5-300 mg Tablet] 1 - 2 tab PO ASDIR PRN #15 tab 03/25/15 Hydrocodone/Acetaminophen [[place] 7.5-325 Tablet] 1 each PO Q6HP PRN #20 tablet 11/10/15 Hydrocodone/Acetaminophen [[place] 5-325 mg Tablet] 1 tab PO Q6HP PRN #14 tablet 11/13/16 Morphine Sulfate [Morphine Ir 15 Mg Tablet] 15 mg PO TID PRN #12 tablet 09/03/18 Allergies/Adverse Reactions: codeine Allergy (Intermediate, Verified 11/13/16 14:34) Review of Systems ROS unobtainable: Due to mental status - Patient intoxicated, answering affirmatively to all questions and subsequently felt unreliable Physical Exam Vital Signs: Temp Pulse Resp BP Pulse Ox 98.3 F 87 15 120/98 H 95 01/24/19 05:35 01/24/19 03:00 01/24/19 05:01 01/24/19 05:01 01/24/19 05:01 Intake & Output 01/22/19 01/23/19 01/24/19 11:59 11:59 11:59 Weight 64.1 kg General appearance: PRESENT: no acute distress, cooperative, disheveled, well- developed, well-nourished Head exam: PRESENT: atraumatic, normocephalic Eye exam: PRESENT: conjunctiva pink, EOMI, PERRLA. ABSENT: scleral icterus Ear exam: PRESENT: normal external ear exam Mouth exam: PRESENT: moist, tongue midline Neck exam: ABSENT: carotid bruit, JVD, lymphadenopathy, thyromegaly Respiratory exam: PRESENT: clear to auscultation angelita. ABSENT: rales, rhonchi, wheezes Cardiovascular exam: PRESENT: RRR. ABSENT: diastolic murmur, rubs, systolic murmur Pulses: PRESENT: normal dorsalis pedis pul Vascular exam: PRESENT: normal capillary refill GI/Abdominal exam: PRESENT: normal bowel sounds, soft. ABSENT: distended, guarding, mass, organolmegaly, rebound, tenderness Rectal exam: PRESENT: deferred Extremities exam: PRESENT: full ROM, other - Left upper extremity sensation intact but 4+ out of 5 strength. ABSENT: calf tenderness, clubbing, pedal edema Musculoskeletal exam: PRESENT: other - Left upper extremity sensation intact but 4+ out of 5 strength Neurological exam: PRESENT: alert, altered, awake, oriented to person, oriented to place, oriented to time, oriented to situation, reflexes normal, CN II-XII grossly intact, other - Left upper extremity sensation intact but 4+ out of 5 strength. ABSENT: motor sensory deficit Psychiatric exam: PRESENT: unusual affect Skin exam: PRESENT: dry, intact, warm. ABSENT: cyanosis, rash Results Laboratory Results: 01/23/19 22:45 01/23/19 22:45 01/23/19 01/23/19 01/23/19 22:45 22:45 22:45 WBC 7.8 RBC 3.68 L Hgb 13.4 Hct 38.7 MCV 105 H MCH 36.3 H MCHC 34.5 RDW 18.1 H Plt Count 200 Seg Neutrophils % 58.0 Lymphocytes % 30.8 Monocytes % 7.5 Eosinophils % 2.8 Basophils % 0.9 Absolute Neutrophils 4.5 Absolute Lymphocytes 2.4 Absolute Monocytes 0.6 Absolute Eosinophils 0.2 Absolute Basophils 0.1 Sodium 139.4 Potassium 3.7 Chloride 105 Carbon Dioxide 22 Anion Gap 12 BUN 5 L Creatinine 0.63 Est GFR ( Amer) > 60 Est GFR (Non-Af Amer) > 60 Glucose 88 Calcium 9.0 Total Bilirubin 0.4 AST 46 H ALT 27 Alkaline Phosphatase 87 Total Protein 7.4 Albumin 4.0 TSH 1.59 01/23/19 01/23/19 22:45 22:45 Creatine Kinase 78 CK-MB (CK-2) 0.89 Troponin I < 0.012 Impressions: Chest X-Ray 01/23/19 00:00 IMPRESSION: No acute cardiopulmonary findings. Head CT 01/23/19 22:46 IMPRESSION: No acute intracranial abnormality. Moderate left and mild right maxillary sinus disease. TECHNICAL DOCUMENTATION: Quality ID # 436: Final reports with documentation of one or more dose reduction techniques (e.g., Automated exposure control, adjustment of the mA and/or kV according to patient size, use of iterative reconstruction technique) copyright 2011 [employer]- All Rights Reserved Head CTA 01/23/19 22:46 IMPRESSION: No evidence of occlusive thrombosis in the major vasculature of the head and neck. Neck CTA 01/23/19 22:46 IMPRESSION: No evidence of occlusive thrombosis in the major vasculature of the head and neck. Assessment and Plan - Diagnosis (1) TIA (transient ischemic attack) Is this a current diagnosis for this admission?: Yes Plan: CVA care set deployed, aspirin, statin, follow-up MRI and carotid Doppler, PRN PT (2) Tobacco abuse Is this a current diagnosis for this admission?: Yes Plan: Tobacco Dependence patient received tobacco cessation counseling and offered nicotine replacement options (3) Alcohol abuse Is this a current diagnosis for this admission?: Yes Plan: Thiamine and folate initiated, PRN Ativan (4) Left-sided weakness Is this a current diagnosis for this admission?: Yes Plan: Possibly secondary to #1, no reproducible pain on exam (5) Macrocytic anemia Is this a current diagnosis for this admission?: Yes Plan: Suspect B12 deficiency of alcoholism. Follow-up anemia work-up - Time Time Spent with patient: 35 or more minutes - Inpatient Certification Medical Necessity: Need Close Monitoring Due to Risk of Patient Decompensation
--- NOTE | 2019-01-24 07:37 | EKG REPORT ---
SEVERITY:- BORDERLINE ECG - SINUS RHYTHM BORDERLINE PROLONGED QT INTERVAL : Confirmed by: Rico Wayne MD 24-Jan-2019 07:36:42
[2019-01-24] MEDS ORDERED: LORAZEPAM INJ 2 MG/1 ML VIAL IV ONE (08:30)
--- NOTE | 2019-01-24 09:39 | RADIOLOGY REPORT (SQ) ---
EXAM DESCRIPTION: MRI HEAD COMBO COMPLETED DATE/TIME: 01/24/2019 9:21 am REASON FOR STUDY: LEFT WEAK COMPARISON: CT dated 01/23/2019. TECHNIQUE: Multiplanar imaging includes noncontrasted T1, T2, FLAIR, diffusion with ADC map and post gadolinium contrast T1 sequences. Images stored on PACS. CONTRAST TYPE AND DOSE: 10 mL Dotarem. RENAL FUNCTION: Not indicated. ACR Type II contrast agent associated with few, if any, unconfounded cases of NSF LIMITATIONS: None. FINDINGS: ANATOMY: No anomalies. Normal vascular flow voids. Pituitary fossa normal. CSF SPACES: Normal in size and contour. No hemorrhage. CEREBRUM: Sulci and gyri normal in size and contour. Normal white matter signal on FLAIR imaging. No evidence of hemorrhage, mass, or extraaxial fluid collection. No abnormal enhancement post contrast. POSTERIOR FOSSA: No signal alteration. No hemorrhage. No edema, masses, or mass effect. Internal abebe tory canals, cerebellopontine angles, mastoids normal. No enhancing lesions. No abnormal enhancement post contrast. DIFFUSION IMAGING: Negative for acute or subacute infarction. ORBITS: No masses. Globes normal. PARANASAL SINUSES: Mucous membrane thickening in the maxillary sinuses, left greater than right. OTHER: No other significant finding. IMPRESSION: NORMAL MRI OF THE BRAIN WITHOUT AND WITH INTRAVENOUS GADOLINIUM CONTRAST. EVIDENCE OF ACUTE STROKE: NO. TECHNICAL DOCUMENTATION: JOB ID: [id number] [employer]- All Rights Reserved Reading location - IP/workstation name: [email or web address]
[2019-01-24 10:50] LABS: CREATINE KINASE MB 0.68 ng/mL (<4.55)
[2019-01-24 10:57] LABS: TROPONIN I < 0.012 ng/mL
[2019-01-24] MEDS: ASPIRIN 81 MG TABLET, ENT COATED PO SCH (10:59)
[2019-01-24] MEDS: HEPARIN SOD (PORCINE) 5,000 UNIT/ML 1 ML SYRINGE SUBCUT SCH ×3 (14:58→21:21)
[2019-01-24 17:36] LABS: CREATINE KINASE MB 0.62 ng/mL (<4.55)
[2019-01-24 17:37] LABS: TROPONIN I < 0.012 ng/mL
[2019-01-24] MEDS ORDERED: ATORVASTATIN CALCIUM 80 MG TABLET PO SCH (22:00)
[2019-01-25] MEDS: HEPARIN SOD (PORCINE) 5,000 UNIT/ML 1 ML SYRINGE SUBCUT SCH (06:26)
[2019-01-25 08:18] LABS: ABSOLUTE EOSINOPHILS # (AUTO) 0.2 10^3/uL (0.0-0.6); ABSOLUTE LYMPHOCYTES (AUTO) 1.5 10^3/uL (0.5-4.7); ABSOLUTE MONOCYTES (AUTO) 0.4 10^3/uL (0.1-1.4); ABSOLUTE NEUT (AUTO) 3.1 10^3/uL (1.7-8.2); BASOPHILS % (AUTO) 0.8 % (0-2); EOSINOPHILS % (AUTO) 4.7 % (0-6); HEMATOCRIT 38.8 % (36.0-47.0); HEMOGLOBIN 13.5 g/dL (12.0-15.5); LYMPHOCYTES % (AUTO) 28.2 % (13-45); MEAN CORPUSCULAR HEMOGLOBIN 36.6 pg (27.0-33.4); MEAN CORPUSCULAR HGB CONC 34.8 g/dL (32.0-36.0); MEAN CORPUSCULAR VOLUME 105 fl (80-97); MONOCYTES % (AUTO) 8.4 % (3-13); PLATELET COUNT 161 10^3/uL (150-450); RED BLOOD COUNT 3.68 10^6/uL (3.72-5.28); RED CELL DISTRIBUTION WIDTH 17.4 % (11.5-14.0); SEGMENTED NEUTROPHILS % (AUTO) 57.9 % (42-78); TOTAL CELLS COUNTED % (AUTO) 100 %; WHITE BLOOD COUNT 5.3 10^3/uL (4.0-10.5)
[2019-01-25] MEDS: THIAMINE HCL 100 MG TABLET PO SCH (09:40)
[2019-01-25] MEDS: FOLIC ACID 1 MG TABLET PO SCH (09:40)
[2019-01-25] MEDS: ASPIRIN 81 MG TABLET, ENT COATED PO SCH (09:41)
[2019-01-25 15:55] VITALS: BP 138/81
--- NOTE | 2019-01-25 16:53 | PDOC DISCHARGE SUMMARY ---
General - Admit/Disc Date/PCP Admission Date/Primary Care Provider: 01/24/19 00:19 MARGARITA JOSEPH, Discharge Date: 01/25/19 - Discharge Diagnosis (1) TIA (transient ischemic attack) Is this a current diagnosis for this admission?: Yes (2) Alcohol abuse Is this a current diagnosis for this admission?: Yes (3) Left-sided weakness Is this a current diagnosis for this admission?: Yes (4) Macrocytic anemia Is this a current diagnosis for this admission?: Yes (5) Tobacco abuse Is this a current diagnosis for this admission?: Yes - Additional Information Resuscitation Status: Full Code Prescriptions: Amlodipine Besylate [Norvasc 2.5 mg Tablet] 2.5 mg PO DAILY 30 Days #30 tablet Aspirin [Children's Aspirin] 81 mg PO DAILY 30 Days #30 tab.chew Atorvastatin Calcium [Lipitor 80 mg Tablet] 80 mg PO QHS 30 Days #30 tablet Home Medications: Alprazolam [Xanax] 1 mg PO BID 01/24/19 Tramadol HCl [Ultram] 50 mg PO Q6HP PRN 01/24/19 Amlodipine Besylate [Norvasc 2.5 mg Tablet] 2.5 mg PO DAILY 30 Days #30 tablet 01/25/19 Aspirin [Children's Aspirin] 81 mg PO DAILY 30 Days #30 tab.chew 01/25/19 Atorvastatin Calcium [Lipitor 80 mg Tablet] 80 mg PO QHS 30 Days #30 tablet 01/25/19 History of Present Illness History of Present Illness: ZARIA CRAIN is a 43 year old female with a past medical history of hypertension, tobacco Dependence and alcohol dependence. She presents 4 hours after the onset of left shoulder pain followed by left-sided numbness and chest pain prompting evaluation in the emergency room where she is found with delirium, alcohol intoxication and a macrocytic anemia in addition to the above complaints. She receives aspirin and referred to the hospitalist for TIA after an unremarkable CT head. Patient is delirious and confused, threatens AMA and is subsequently IVC by emergency room provider. Patient denies recent change in medications, recreational drugs or alcohol use. She denies previous history of TIA. Hospital Course Hospital Course: (1) TIA (transient ischemic attack) CT/CTA head and neck negative for any acute changes. MRI brain negative for any acute stroke. EKG sinus rhythm. PT/OT consulted. Recommended outpatient PT/OT frontwheel walker. Was started on aspirin high intensity statins and low-dose amlodipine advised to follow-up with PCP as soon as possible. Patient PT OT were arranged and front wheel walker provided. Patient was given a referral to follow-up with Dr. Jones for a 30-day event monitor and outpatient echocardiography. (2) Tobacco abuse Strongly advised on quitting. (3) Alcohol abuse Was started on thiamine and folic acid. PRN Ativan provided. No sign of withdrawal while in hospital. (4) Left-sided weakness On my physical examination I noticed that patient had more of a giving weakness due to shoulder pain rather than actual focal neurological deficit. No weakness noticed on handgrip, elbow flexion and extension. Reflexes, pain temperature and proprioception intact. On further inspection of the shoulder joint there was tenderness over the mid clavicular region as well as mild tenderness over AC joint but patient does not recall any trauma or any heavy lifting. (5) Macrocytic anemia Acute due to B12 and folic acid deficiency caused by heavy alcohol intake. Was advised on cutting down alcohol intake. Physical Exam Vital Signs: Temp Pulse Resp BP Pulse Ox 97.4 F 75 16 139/87 H 100 01/25/19 14:13 01/25/19 14:13 01/25/19 14:13 01/25/19 14:13 01/25/19 14:13 Intake & Output 01/24/19 01/25/19 01/26/19 06:59 06:59 06:59 Intake Total 2510 696 Balance 2510 696 Weight 64.5 kg 66.7 kg General appearance: PRESENT: no acute distress, well-developed, well-nourished Head exam: PRESENT: atraumatic, normocephalic Neck exam: ABSENT: carotid bruit, JVD, lymphadenopathy, thyromegaly Respiratory exam: PRESENT: clear to auscultation angelita. ABSENT: rales, rhonchi, wheezes Cardiovascular exam: PRESENT: RRR. ABSENT: diastolic murmur, rubs, systolic murmur Pulses: PRESENT: normal dorsalis pedis pul GI/Abdominal exam: PRESENT: normal bowel sounds, soft. ABSENT: distended, guarding, mass, organolmegaly, rebound, tenderness Extremities exam: PRESENT: full ROM, tenderness - TTP over left mid clavicular and AC joint.. ABSENT: calf tenderness, clubbing, pedal edema Musculoskeletal exam: ABSENT: ambulatory, deformity, dislocation, full ROM, normal inspection, tenderness, other Neurological exam: PRESENT: alert, awake, oriented to person, oriented to place, oriented to time, oriented to situation, CN II-XII grossly intact. ABSENT: motor sensory deficit Results Laboratory Results: 01/25/19 07:47 01/23/19 22:45 01/25/19 07:47 WBC 5.3 RBC 3.68 L Hgb 13.5 Hct 38.8 MCV 105 H MCH 36.6 H MCHC 34.8 RDW 17.4 H Plt Count 161 Seg Neutrophils % 57.9 Lymphocytes % 28.2 Monocytes % 8.4 Eosinophils % 4.7 Basophils % 0.8 Absolute Neutrophils 3.1 Absolute Lymphocytes 1.5 Absolute Monocytes 0.4 Absolute Eosinophils 0.2 Absolute Basophils 0.0 01/23/19 01/23/19 01/24/19 22:45 22:45 04:55 Creatine Kinase 78 66 CK-MB (CK-2) 0.89 Troponin I < 0.012 01/24/19 01/24/19 01/24/19 04:55 10:10 10:10 Creatine Kinase 61 CK-MB (CK-2) 0.59 0.68 Troponin I < 0.012 < 0.012 01/24/19 01/24/19 16:37 16:37 Creatine Kinase 55 CK-MB (CK-2) 0.62 Troponin I < 0.012 Impressions: Chest X-Ray 01/23/19 00:00 IMPRESSION: No acute cardiopulmonary findings. Head CT 01/23/19 22:46 IMPRESSION: No acute intracranial abnormality. Moderate left and mild right maxillary sinus disease. TECHNICAL DOCUMENTATION: Quality ID # [id number]: Final reports with documentation of one or more dose reduction techniques (e.g., Automated exposure control, adjustment of the mA and/or kV according to patient size, use of iterative reconstruction technique) copyright 2011 [employer]- All Rights Reserved Head CTA 01/23/19 22:46 IMPRESSION: No evidence of occlusive thrombosis in the major vasculature of the head and neck. Neck CTA 01/23/19 22:46 IMPRESSION: No evidence of occlusive thrombosis in the major vasculature of the head and neck. Head MRI 01/24/19 00:03 IMPRESSION: NORMAL MRI OF THE BRAIN WITHOUT AND WITH INTRAVENOUS GADOLINIUM CONTRAST. EVIDENCE OF ACUTE STROKE: NO. Qualifiers - * PATIENT BEING DISCHARGED WITH ANY OF THE FOLLOWING DIAGNOSIS: No
[2019-01-26] MEDS ORDERED: AMLODIPINE BESYLATE 2.5 MG TABLET PO SCH (10:00)
== END 2019-01-25 14:58 | disposition home or self-care (01) ==
LOC: ER 22:20 → EH 01-24 00:19 → 3S 01-24 06:55
PROVIDERS: ADMIT Internal Medicine; ATTEND Internal Medicine
DX: G45.9 Transient cerebral ischemic attack, unspecified (principal); F10.229 Alcohol dependence with intoxication, unspecified; D52.9 Folate deficiency anemia, unspecified; D51.9 Vitamin B12 deficiency anemia, unspecified; I10 Essential (primary) hypertension; R53.1 Weakness; M25.512 Pain in left shoulder; F17.200 Nicotine dependence, unspecified, uncomplicated; G89.29 Other chronic pain; M54.9 Dorsalgia, unspecified; R44.1 Visual hallucinations; F41.9 Anxiety disorder, unspecified; R29.704 NIHSS score 4; Z79.899 Other long term (current) drug therapy; Z90.710 Acquired absence of both cervix and uterus; Z98.51 Tubal ligation status; Z82.3 Family history of stroke
CPT/HCPCS: 93005; 99291; 36415 ×3; 82553 ×2; 80307 ×2; 82550 ×2; 84443; 85025 ×2; 85610; 85730; 80053; 84484 ×2; 80061; 70553; 71045; 70450; 70496; 70498; 93010; 97110; 97116; 97163; 97165; G0378 ×3; A9576; J3490 ×8; J1644 ×2; J2060

== ENCOUNTER 2020-05-06 11:34 | Emergency (ER) | payer MEDICAID ==
[2020-05-06 11:42] VITALS: BP 141/98
[2020-05-06] MEDS ORDERED: IBUPROFEN 800 MG TABLET PO ONE (12:06)
--- NOTE | 2020-05-06 12:12 | ER Document Report ---
ED Extremity Problem, Upper - General Chief Complaint: Arm Pain Stated Complaint: FALL/ARM PAIN Time Seen by Provider: 05/06/20 12:03 Primary Care Provider: FAM MANCERA JR, DO [ACTIVE PROVISIONAL STAFF] - Follow up as needed MARGARITA JOSEPH DO [Primary Care Provider] - Follow up as needed Mode of Arrival: Ambulatory Information source: Patient Notes: 45-year-old female presented to ED for complaint of pain to the right wrist and elbow. She states she got up during the night to go to the bathroom and the dog pulled her leg causing her to fall on her elbow and hand. Is alert oriented respirations regular nonlabored speaking in full sentences. She states it is painful to move but she can move both joints. TRAVEL OUTSIDE OF THE [place] IN LAST 30 DAYS: No - HPI Patient complains to provider of: Injury, Pain, Swelling, Right, Elbow, Wrist Onset: Yesterday Recent injury: Yes Where: Home, Indoors Quality of pain: Achy Severity of pain: Moderate Pain Level: 4 Context: Fall Associated symptoms: None Exacerbated by: Movement, Exertion Relieved by: Rest, Positioning Similar symptoms previously: No Recently seen / treated by doctor: No - Related Data Allergies/Adverse Reactions: codeine Allergy (Intermediate, Verified 05/06/20 12:28) Past Medical History - General Information source: Patient - Social History Smoking Status: Current Every Day Smoker Cigarette use (# per day): Yes - 1/2 pack/day Smoking Education Provided: Yes Drug Abuse: None Lives with: Family Family History: Arthritis, CVA, Hyperlipidemia, Hypertension, Malignancy, Other - asthma Patient has suicidal ideation: No - Past Medical History Cardiac Medical History: Reports: None Pulmonary Medical History: Reports: Hx Asthma, Hx COPD EENT Medical History: Reports: None Neurological Medical History: Reports: None Endocrine Medical History: Reports: None Renal/ Medical History: Reports: None Malignancy Medical History: Reports: None GI Medical History: Reports: None Musculoskeletal Medical History: Reports Hx Musculoskeletal Trauma - Fractured ankle Skin Medical History: Reports None Psychiatric Medical History: Reports: Hx Anxiety Traumatic Medical History: Reports: Hx Fractures - Ankle Infectious Medical History: Reports: None Past Surgical History: Reports: Hx Tubal Ligation - Immunizations Immunizations up to date: Yes Hx Diphtheria, Pertussis, Tetanus Vaccination: Yes Hx Pneumococcal Vaccination: 01/01/01 Review of Systems - Review of Systems Constitutional: No symptoms reported EENT: No symptoms reported Cardiovascular: No symptoms reported Respiratory: No symptoms reported Gastrointestinal: No symptoms reported Genitourinary: No symptoms reported Female Genitourinary: No symptoms reported Musculoskeletal: Other - Right wrist and elbow pain and injury Skin: No symptoms reported Hematologic/Lymphatic: No symptoms reported Neurological/Psychological: No symptoms reported -: Yes All other systems reviewed and negative Physical Exam - Vital signs Vitals: Temp Pulse Resp BP Pulse Ox 97.8 F 88 16 141/98 H 99 05/06/20 11:40 05/06/20 11:40 05/06/20 11:40 05/06/20 11:40 05/06/20 11:40 Interpretation: Normal - General General appearance: Appears well, Alert - HEENT Head: Normocephalic, Atraumatic Eyes: Normal Pupils: PERRL - Respiratory Respiratory status: No respiratory distress Chest status: Nontender Breath sounds: Normal Chest palpation: Normal - Cardiovascular Rhythm: Regular Heart sounds: Normal auscultation Murmur: No - Abdominal Inspection: Normal Distension: No distension Bowel sounds: Normal Tenderness: Nontender Organomegaly: No organomegaly - Back Back: Normal, Nontender - Extremities General upper extremity: Normal color, Normal temperature General lower extremity: Normal inspection, Nontender, Normal color, Normal ROM, Normal temperature, Normal weight bearing. No: Alex's sign Elbow: Tender, Dislocation, Limited ROM - due to pain Forearm: Ecchymosis Wrist: Tender, Limited ROM - Due to pain - Neurological Neuro grossly intact: Yes Cognition: Normal Orientation: AAOx4 [place] Coma Scale Eye Opening: Spontaneous [place] Coma Scale Verbal: Oriented [place] Coma Scale Motor: Obeys Commands [place] Coma Scale Total: 15 Speech: Normal Motor strength normal: LUE, RUE, LLE, RLE Sensory: Normal - Psychological Associated symptoms: Normal affect, Normal mood - Skin Skin Temperature: Warm Skin Moisture: Dry Skin Color: Normal Course - Re-evaluation Re-evalutation: 05/06/20 13:43 Discussed x-rays with patient written report of x-rays given the patient. Patient was treated with a cock-up splint and sling. Patient was instructed on ice packs elevation ibuprofen and Tylenol. Patient was able to verbalize understanding and agreement with treatment plan patient was discharged home. - Vital Signs Vital signs: Temp Pulse Resp BP Pulse Ox 97.8 F 88 16 141/98 H 99 05/06/20 11:40 05/06/20 11:40 05/06/20 11:40 05/06/20 11:40 05/06/20 11:40 - Diagnostic Test Radiology reviewed: Image reviewed, Reports reviewed Procedures - Immobilization Right Wrist Time completed: 13:42 Immobilizer type: Cock-up, Sling Performed by: PCT Post-Proc Neuro Vasc Exam: Normal Alignment checked and good: Yes Discharge - Discharge Clinical Impression: Fall Qualifiers: Encounter type: initial encounter Qualified Code(s): W19.XXXA - Unspecified fall, initial encounter Injury of right elbow Qualifiers: Encounter type: initial encounter Qualified Code(s): S59.901A - Unspecified inj ury of right elbow, initial encounter Injury of right wrist Qualifiers: Encounter type: initial encounter Qualified Code(s): S69.91XA - Unspecified injury of right wrist, hand and finger(s), initial encounter Condition: Stable Disposition: HOME, SELF-CARE Additional Instructions: CONTUSION: Your injury has resulted in a contusion -- a crushing of the deep tissues. No injury to important structures was detected during the physician's exam. Contusions vary in the amount of pain they cause, and in the length of time required for healing. Typically, the area will become bruised, and will remain painful to touch for two or three weeks. However, most patients are back to working and playing within a few days. After the initial period of rest and cold-packs, your symptoms (together with the doctor's recommendations) will determine how rapidly you can get back to full activity. Usually this means "do what feels okay, but don't do things that hurt." If re-examination was recommended, it's important to follow up as instruc moon. Call the doctor or return any time if pain increases, if swelling becomes severe, if you develop numbness or weakness in an injured extremity, or if any other alarming symptoms occur. USE OF TYLENOL (ACETAMINOPHEN): Acetaminophen may be taken for pain relief or fever control. It's much safer than aspirin, offering a wider range of "safe" dosages. It is safe during . Some brand names are Tylenol, Panadol, Datril, Anacin 3, Tempra, and Liquiprin. Acetaminophen can be repeated every four hours. The following are maximum recommended dosages: WEIGHT Dose Drops Elixir Chewable(80mg) (LBS.) drprs=droppers tsp=teaspoon 6 40 mg 0.4 ml (1/2) 6-11 80 mg 0.8 ml (full) tsp 1 tab 12-16 120 mg 1 1/2 drprs 3/4 tsp 1 1/2 tabs 17-23 160 mg 2 drprs 1 tsp 2 tabs 24-30 240 mg 3 drprs 1 1/2 tsp 3 tabs 30-35 320 mg 2 tsp 4 tabs 36-41 360 mg 2 1/4 tsp 4 1/2 tabs 42-47 400 mg 2 1/2 tsp 5 tabs 48-53 480 mg 3 tsp 6 tabs 54-59 520 mg 3 1/4 tsp 6 1/2 tabs 60-64 560 mg 3 1/2 tsp 7 tabs 65-70 600 mg 3 3/4 tsp 7 1/2 tabs 71-76 640 mg 4 tsp 8 tabs 77-82 720 mg 4 1/2 tsp 9 tabs 83-88 800 mg 5 tsp 10 tabs >89 pounds or adults 650 mg to 900 mg Acetaminophen can be repeated every four hours. Maximum dose not to exceed 4000 mg a day. These maximum recommended dosages are slightly higher than the dosages written on the product container, but these dosages are very safe and below the toxic dosage for acetaminophen. SPLINT PRECAUTIONS: A splint has been placed. This will protect the area while healing begins. Your problem does NOT normally require a cast. It MUST, however, be held still! Keep the splint on ALL THE TIME until instructed to remove it by the doctor. As you begin to use the area, be careful. You shouldn't do anything which causes discomfort -- you may disturb the injury even with the splint in place. After the initial period of rest and elevation, if splint does not prevent pain when you move, come back. You may require placement of a different splint, or a cast. If there is unexpected severe pain, or numbness, discoloration, or swelling beyond the splint, you should return at once. If you feel that the splint has broken or become loose, come back. ICE & ELEVATION: Apply ice packs frequently against the painful area. Many different schedules are recommended, such as "20 minutes on, 20 minutes off" or "one hour ice, two hours rest." If you need to work, you may need to go longer between ice treatments. You should plan to have the area ice packed AT LEAST one-fourth of the time. The ice should be applied over the wrap, tape, or splint, or over a layer of cloth -- not directly against the skin. Some ice bags have a built-in cloth and can be put directly on the skin. Your injured part should be elevated as much as possible over the next 48 hours. Try to keep the injury above the level of the heart. Avoid use of the injured area. Elevation and rest will decrease the swelling. USE OF [id number] IBUPROFEN: Ibuprofen (Advil, Nuprin, Medipren, Motrin IB) is a medication for fever and pain control. In addition, it has anti- inflammatory effects which may be beneficial, especially in the treatment of injuries. It's best to take ibuprofen with food. Persons with ulcer disease or allergy to aspirin should notify their physician of this before taking ibuprofen. Ibuprofen can be given every four to six hours, for a total of four doses daily. Age Pain or fever dose Antiinflammatory dose 6-8 yr 200 mg (1 tab) 200 mg (1 tab) 9-11 yr 200 mg (1 tab) 200-400 mg (1-2 tab) 11-14 yr 200-400 mg (1-2 tab) 400 mg (2 tab) 15-adult 400 mg (2 tab) 600 mg (3 tab) Been given a sling to help with the discomfort to your elbow. Please do not wear it all the time. Please move the elbow so you do not get frozen shoulder and frozen elbow. It is important to move the elbow and wrist. FOLLOW-UP CARE: If you have been referred to a physician for follow-up care, call the physicians office for an appointment as you were instructed or within the next two days. If you experience worsening or a significant change in your symptoms, notify the physician immediately or return to the Emergency Department at any time for re-evaluation. Forms: Elevated Blood Pressure, Smoking Cessation Education, Return to Work Referrals: MARGARITA JOSEPH, [Primary Care Provider] - Follow up as needed FAM MANCERA JR, DO [ACTIVE PROVISIONAL STAFF] - Follow up as needed
--- NOTE | 2020-05-06 12:57 | RADIOLOGY REPORT (SQ) ---
EXAM DESCRIPTION: ELBOW RIGHT OVER 2 VIEWS IMAGES COMPLETED DATE/TIME: 05/06/2020 12:27 pm REASON FOR STUDY: fall pain injury COMPARISON: None. NUMBER OF VIEWS: Four views. TECHNIQUE: AP, lateral, and both oblique radiographic images acquired of the right elbow. LIMITATIONS: None. FINDINGS: MINERALIZATION: Normal. BONES: No acute fracture or dislocation. No worrisome bone lesions. JOINT: No effusion. SOFT TISSUES: No soft tissue swelling. No foreign body. OTHER: No other significant finding. IMPRESSION: NEGATIVE STUDY OF THE RIGHT ELBOW. NO RADIOGRAPHIC EVIDENCE OF ACUTE INJURY. TECHNICAL DOCUMENTATION: JOB ID: [id number] 2010 [employer]- All Rights Reserved Reading location - IP/workstation name: [email or web address]
--- NOTE | 2020-05-06 12:58 | RADIOLOGY REPORT (SQ) ---
EXAM DESCRIPTION: WRIST RIGHT 3 VIEWS IMAGES COMPLETED DATE/TIME: 05/06/2020 12:27 pm REASON FOR STUDY: fall pain injury COMPARISON: None. NUMBER OF VIEWS: Three views. TECHNIQUE: AP, lateral, and oblique radiographic images acquired of the right wrist. LIMITATIONS: None. FINDINGS: MINERALIZATION: Normal. BONES: No acute fracture or dislocation. No worrisome bone lesions. Normal alignment. SOFT TISSUES: No soft tissue swelling. No foreign body. OTHER: No other significant finding. IMPRESSION: NEGATIVE STUDY OF THE RIGHT WRIST. NO RADIOGRAPHIC EVIDENCE OF ACUTE INJURY. TECHNICAL DOCUMENTATION: JOB ID: [id number] 2010 [employer]- All Rights Reserved Reading location - IP/workstation name: [email or web address]
== END 2020-05-06 13:42 | disposition home or self-care (01) ==
LOC: ER 11:34
DX: S59.901A Unspecified injury of right elbow, initial encounter (principal); S69.91XA Unspecified injury of right wrist, hand and finger(s), initial encounter; M25.531 Pain in right wrist; M25.521 Pain in right elbow; W19.XXXA Unspecified fall, initial encounter; Z88.8 Allergy status to other drugs, medicaments and biological substances; F17.210 Nicotine dependence, cigarettes, uncomplicated; J44.9 Chronic obstructive pulmonary disease, unspecified
CPT/HCPCS: 99283; 73080; 73110; J3490

== ENCOUNTER 2020-07-30 03:41 | Emergency (ER) | payer MEDICAID ==
[2020-07-30 04:08] VITALS: BP 125/91
--- NOTE | 2020-07-30 04:43 | RADIOLOGY REPORT (SQ) ---
EXAM: X-ray wrist three or more views, left CLINICAL DATA: 45 years Female bone pain status post fall TECHNICAL DATA: Three x-ray views of the left wrist were performed on 07/30/2020 at 4:06 AM. COMPARISONS: None FINDINGS: There is no evidence of fracture or dislocation. There is no significant arthritis or degenerative change. No focal lytic or sclerotic bone lesions are seen. Bone mineralization is decreased. No focal soft tissue abnormalities are identified. IMPRESSION: No evidence of acute osseous injury involving the left wrist. There is mild diffuse bone demineralization.
--- NOTE | 2020-07-30 05:17 | ER Document Report ---
ED General - General Chief Complaint: Arm Injury Stated Complaint: LEFT HAND INJURY Primary Care Provider: MARGARITA JOSEPH DO [Primary Care Provider] - Follow up as needed Notes: 45-year-old female presents with pain in left wrist after mechanical fall just prior to arrival. Patient tripped over her puppy and fell onto her outstretched left wrist. Patient denies any trauma elsewhere, pain elsewhere, bleeding diatheses, anticoagulation, weakness, numbness TRAVEL OUTSIDE OF THE [place] IN LAST 30 DAYS: No - Related Data Allergies/Adverse Reactions: codeine Allergy (Intermediate, Verified 05/06/20 12:28) Home Medications: ambien, xanax, omeprazole, anxiety med, Past Medical History - General Information source: Patient - Social History Smoking Status: Current Every Day Smoker Frequency of alcohol use: 2 drinks today Family History: Arthritis, CVA, Hyperlipidemia, Hypertension, Malignancy, Other - asthma Pulmonary Medical History: Reports: Hx Asthma, Hx COPD Renal/ Medical History: Denies: Hx Peritoneal Dialysis Musculoskeletal Medical History: Reports Hx Musculoskeletal Trauma - Fractured ankle Psychiatric Medical History: Reports: Hx Anxiety Traumatic Medical History: Reports: Hx Fractures - Ankle Past Surgical History: Reports: Hx Hysterectomy, Hx Tubal Ligation - Immunizations Immunizations up to date: Yes Hx Diphtheria, Pertussis, Tetanus Vaccination: Yes Hx Pneumococcal Vaccination: 10/01/00 Review of Systems - Review of Systems Notes: REVIEW OF SYSTEMS: CONSTITUTIONAL : Denies fever, chills, or sweats. EENT: Denies recent cold/sinus symptoms, denies throat pain CARDIOVASCULAR: Denies chest pain, TATO RESPIRATORY: Denies cough, denies shortness of breath. GASTROINTESTINAL: Denies abdominal pain, nausea/vomiting. GENITOURINARY: Denies difficulty urinating, painful urination. FEMALE GENITOURINARY: Denies abnormal vaginal bleeding, vaginal discharge. MUSCULOSKELETAL: Denies neck pain, back pain. SKIN: Denies rash or skin lesions. HEMATOLOGIC : Denies easy bruising or bleeding. LYMPHATIC: Denies swollen, enlarged glands. NEUROLOGICAL: Denies headache, denies change in gait. PSYCHIATRIC: Denies anxiety or stress or depression. Physical Exam - Vital signs Vitals: Temp Pulse Resp BP Pulse Ox 97.5 F 86 16 125/91 H 96 07/30/20 03:48 07/30/20 03:48 07/30/20 03:48 07/30/20 03:48 07/30/20 03:48 - Notes Notes: PHYSICAL EXAMINATION: GENERAL: Well-appearing, well-nourished and in no acute distress. HEAD: Atraumatic, normocephalic. EYES: Pupils equal round and appropriate constriction, sclera anicteric, conjunctiva are normal. ENT: nares patent, moist mucous membranes. NECK: Normal range of motion, supple without lymphadenopathy LUNGS: Breath sounds clear to auscultation bilaterally and equal. No wheezes rales or rhonchi. HEART: Regular rate and rhythm without murmurs ABDOMEN: Soft, nontender, no guarding, no masses, no CVAT EXTREMITIES: Normal range of motion, no pitting or edema. No cyanosis. Radial pulses 2+ bilaterally, full strength and sensation in all distributions, no snuffbox tenderness, no deformity, skin intact, mild dorsomedial wrist tenderness without any joint instability, no other points of tenderness anywhere else on extremities NEUROLOGICAL: Awake, alert, conversing appropriately, moves all extremities spontaneously. PSYCH: Normal mood, normal affect. SKIN: Warm, Dry, normal turgor, no rashes or lesions noted. Course - Re-evaluation Re-evalutation: 07/30/20 05:21 Isolated wrist trauma with mechanical fall, no other signs of trauma on head to toe exam, neurovascularly intact, skin intact, compartments soft, obtained wrist x-ray with no acute fracture, patient has no snuffbox tenderness, informed patient that it is possible to miss acute fractures of the immediate x-ray and we stressed the importance of follow-up. Given extensive return to ED precautions which she demonstrated understanding of. Patient ready for discharge with wrist brace, ibuprofen, and PCP and Ortho follow-up. - Vital Signs Vital signs: Temp Pulse Resp BP Pulse Ox 97.5 F 86 16 125/91 H 96 07/30/20 03:48 07/30/20 03:48 07/30/20 03:48 07/30/20 03:48 07/30/20 03:48 Discharge - Discharge Clinical Impression: Wrist injury Qualifiers: Encounter type: initial encounter Laterality: left Qualified Code(s): S69.92XA - Unspecified injury of left wrist, hand and finger(s), initial encounter Disposition: HOME, SELF-CARE Instructions: Ibuprofen (General) ([facility]) Additional Instructions: Is likely that you have sprained your wrist, but is still possible that you have a fracture that we cannot yet detect on x-ray. It is important that you follow- up with a primary doctor and with an orthopedic surgeon. If you have any worsening pain, weakness, numbness, skin swelling, inability to move your wrist, fever, rash, change in skin color, or any other worsening or alarming symptoms return to the emergency department immediately. Prescriptions: Ibuprofen [Ibu] 600 mg PO Q6HP PRN #15 tablet PRN Reason: For Pain Scale 2-3 Referrals: MARGARITA JOSEPH DO [Primary Care Provider] - Follow up in 1 week FAM MANCERA JR, DO [ACTIVE PROVISIONAL STAFF] - Follow up in 1 week
== END 2020-07-30 05:33 | disposition home or self-care (01) ==
LOC: ER 03:41
DX: S69.92XA Unspecified injury of left wrist, hand and finger(s), initial encounter (principal); M25.532 Pain in left wrist; W01.0XXA Fall on same level from slipping, tripping and stumbling without subsequent striking against object, initial encounter; F17.200 Nicotine dependence, unspecified, uncomplicated; J44.9 Chronic obstructive pulmonary disease, unspecified; F41.9 Anxiety disorder, unspecified; Z79.899 Other long term (current) drug therapy; Z88.6 Allergy status to analgesic agent; Z88.5 Allergy status to narcotic agent
CPT/HCPCS: 99283